=== PATIENT | female | born 1935 | race Caucasian/White ===

== ENCOUNTER → 2023-06-09 14:00 | Outpatient (REF) | payer OTHER, SELFPAY | LOC: RAD 14:00 | PROVIDERS: ATTENDING PHYSICIAN Psychiatry & Neurology Neurology; FAMILY PHYSICIAN Family Medicine | DX: T14.8XXA Other injury of unspecified body region, initial encounter (principal) | CPT/HCPCS: 76705 ==

== ENCOUNTER 2023-06-10 11:39 | Emergency (ER) | payer OTHER, SELFPAY ==
[2023-06-10 11:44] VITALS: BP 94/63
--- NOTE | 2023-06-10 13:59 | ED.GENMED ---
History of Present Illness
General
Chief Complaint: Back Pain
Source: patient and family (Daughter with whom she lives)
Exam Limitations: none
Time Seen by Provider: 06/10/23 12:13
Nursing documentation reviewed up to this point in time: agreed with
Travel History
Have you had any contact with someone who has COVID-19?: No
Do you have any symptoms of coronavirus? Fever > 100 degrees, chills, cough, shortness of breath, sore throat, loss of taste or smell, muscle aches, or headache?: No
History of Present Illness
History of Present Illness:
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 Skinner for back pain. She denies fever or chills. Daughter states they noticed swelling in the area 3 days ago.
The area is slowly improving but pt has been afraid to move around too much wondering what is the issue.
She called Dr. Skinner's office and was told perhaps Lidocaine patch would help
Past History
Past History
ED Past Medical History: Asthma, HTN, Hypercholesterolemia, NIDDM, Psychiatric (Anxiety, panic attacks) and Other (DVT/PE, AAA)
ED Past Surgical History: Gynecological (Tubal ligation, Cyst removed), Orthopedic (right wrist surgery 5 weeks ago.) and Other (Eye surgery)
Patient has exhibited threatening behavior?: No
PSI?: No
Social History
Tobacco: Non-smoker
Alcohol: Occasional
Drug: None
Personal:
Living: with family
Employment: Retired
Family History
Family History: Other
Review of Systems
Review of Systems
Allergies reviewed?: Yes
All Other Systems: ROS reviewed and negative except as documented in HPI and ROS
Constitutional: Denies fever or chills
Respiratory: Denies trouble breathing
Cardiac: Denies chest pain
ABD/GI: Denies abdominal pain
: Denies dysuria, incontinence, difficulty voiding or urgency
Musculoskeletal: Reports back pain; Denies edema
Skin: Reports no symptoms
Neurological: Reports no symptoms
Phy Exam
Physical Exam
Physical Exam:
GENERAL: No acute distress. A&Ox3.
CONSTITUTIONAL: Afebrile.
RESPIRATORY: Regular respirations, nonlabored, lungs clear.
CARDIOVASCULAR: Regular rate and rhythm, no murmurs, no rubs.
GI: Soft, nontender, normal BS
MUSCULOSKELETAL: Moves with ease relative to age. Tender mild swelling left para lumbar ST. Palpation of this area immediately reproduces pain. No redness, warmth or ecchymosis. No spinal bony tenderness. OOB standing no pain with torso rotation,
mild pain with forward flexion. Ambulates at baseline, slow, stead. Well perfused.
SKIN: Warm, dry, pink
PSYCH: Normal mood and affect. Well kept, interactive and appropriate
NEUROLOGIC: Awake, alert and oriented. No focal neurological deficits
Course
Vital Signs
Initial and Last Documented VS:
Initial Vital Signs
Temp BP
97.6 F 94/63
06/10/23 11:44 06/10/23 11:44
Last Documented Vital Signs
Temp Pulse Resp BP Pulse Ox
97.6 F 90 16 94/63 97
06/10/23 11:44 06/10/23 12:01 06/10/23 12:01 06/10/23 11:44 06/10/23 12:01
MDM/Problems Addressed
Differential Diagnosis Includes:
hematoma, abscess
MDM/Problems Addressed:
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 Skinner for back pain. She denies fever or chills. Daughter states they noticed swelling in the area 3 days ago.
The area is slowly improving but pt has been afraid to move around too much wondering what is the issue.
She called Dr. Skinner's office and was told perhaps Lidocaine patch would help
Afebrile, NAD
Patient had outpatient ultrasound, radiology report read: IMPRESSION: Mildly complex collection within the soft tissues at the level of interest as above, measuring up to 7.6 cm in diameter. Sonographic appearance is nonspecific and both abscess and
hematoma are differential considerations.
Afebrile, leg strength 5/5, no cauda equina, moving relatively easily, therapeutic INR, do not suspect spinal pathology
This is most likely a hematoma, it is improving per patient and daughter. Plan: Observe, warm compress, seek medical care immediately for signs of infection or worsening symptoms Or if it is not much improved within the next week
*Critical Care Note
Total Time (30-74mins, 75-104mins- exclusive of procedures): Not Applicable
ED Attending Note
-
Portions of this chart may have been created with voice recognition software.� Occasional wrong word or��sound alike� substitutions may have occurred due to the inherent limitations of voice recognition software.
Discharge Plan
Departure
Patient Disposition: Home (Routine Discharge)
Date of Disposition: 06/10/23
Time of Disposition: 12:41
Patient with high blood pressure during this ER visit?: No
Condition: Good
Discharge Problem:
Hematoma of back
Instructions: Hematoma
Prescriptions:
No Action
venlafaxine [Effexor XR] 37.5 MG capsule,extended release 24hr
37.5 mg PO QPM
acetaminophen [Tylenol Extra Strength] 500 MG tablet
500 mg PO Q4HPRN PRN (Reason: mild pain)
docusate sodium 100 MG capsule
100 mg PO BIDPRN PRN (Reason: constipation)
PreserVision AREDS-2 1 EACH capsule
1 ea PO DAILY
pantoprazole 40 MG tablet,delayed release (DR/EC)
40 mg PO BID
cyanocobalamin (vitamin B-12) 1,000 MCG tablet
2,000 mcg PO Q48H
atorvastatin 80 mg tablet
80 mg PO DAILY
venlafaxine 75 mg capsule,extended release 24hr
75 mg PO DAILY
alprazolam [Xanax] 0.5 mg Tablet
0.5 mg PO DAILYPRN PRN (Reason: anxiety)
warfarin 5 mg Tablet
5 mg PO DAILY@1600
lorazepam 2 mg tablet
2 mg PO QPM
amoxicillin 500 mg Capsule
500 mg PO Q8H 4 Days Qty: 12 0RF
cefdinir 300 mg Capsule
300 mg PO DAILY 4 Days Qty: 4 0RF
Referrals:
Srinivas Bryson DO [Family Provider] - Follow up in 2-3 days
Activity Restrictions/Additional Instructions:
As we discussed, since the area is slowing improving, this is most likely a hematoma as mentioned in your ultrasound.
Activity as tolerated, Warm compress may help
Seek medical care immediately for increasing pain, redness, swelling, fever or feeling worse in any way.
Interventions
Interventions:
*Risk Screen - Suicide Last Done: 06/10/23 11:58
*General Assessment Last Done: 06/10/23 11:58
*Neglect/Abuse Screening Last Done: 06/10/23 11:58
*ED COVID-19 Vaccine History Last Done: 06/10/23 11:44
*Nursing Disposition Last Done: 06/10/23 12:58
ED-Musculoskeletal Assessment Last Done: 06/10/23 11:58
Discharge Date and Time
Discharge Date/Time: 06/10/23 12:58
== END 2023-06-10 12:58 | disposition home or self-care (01) ==
LOC: EMR 11:39
PROVIDERS: EMERGENCY PHYSICIAN Emergency Medicine; FAMILY PHYSICIAN Family Medicine
DX: S30.0XXA Contusion of lower back and pelvis, initial encounter (principal); X58.XXXA Exposure to other specified factors, initial encounter; I48.91 Unspecified atrial fibrillation; I11.0 Hypertensive heart disease with heart failure; I50.9 Heart failure, unspecified; E78.00 Pure hypercholesterolemia, unspecified; E11.9 Type 2 diabetes mellitus without complications; F41.9 Anxiety disorder, unspecified; J45.909 Unspecified asthma, uncomplicated; Z79.01 Long term (current) use of anticoagulants; Z86.711 Personal history of pulmonary embolism; Z86.718 Personal history of other venous thrombosis and embolism; Z86.79 Personal history of other diseases of the circulatory system; Z98.51 Tubal ligation status
CPT/HCPCS: 99282

== ENCOUNTER 2023-11-13 13:14 | Emergency (ER) | payer OTHER, SELFPAY ==
[2023-11-13 13:26] VITALS: BP 100/72
[2023-11-13 13:46] LABS: % Basophils 0.2 % (0-2); % Eosinophils 0.2 % (0-6); % Immature Granulocytes 0.9 % (0-0.5); % Lymphocytes 6.2 % (20.5-51.1); % Monocytes 18.5 % (1.7-9.3); Absolute Immature Granulocytes 0.1 10^3/uL (0-0.05); Absolute Lymphocytes 0.9 10^3/uL (1.2-3.4); Absolute Monocytes 2.8 10^3/uL (0.1-0.6); Absolute Neutrophils 11.2 10^3/uL (1.4-6.5); Hematocrit 27.9 % (37.0-47.0); Hemoglobin 9.4 g/dL (12.0-16.0); Mean Corp Hgb Conc. 33.7 g/dL (33.0-37.0); Mean Corpuscular Hgb 31.5 pg (27.0-31.0); Mean Corpuscular Volume 93.6 fL (81.0-99.0); Nucleated Red Blood Cells % 0.7 %; Platelet Count 198 10^3/uL (130-400); Red Blood Cell Count 2.98 10^6/uL (4.20-5.40); Red Cell Dist. Width 14.2 % (11.5-14.5); White Blood Cell Count 15.2 10^3/uL (4.8-10.8)
[2023-11-13 13:55] LABS: PT 52.1 Sec (11.4-14.6)
[2023-11-13 14:02] LABS: INR 5.75
[2023-11-13 14:38] LABS: ALT (SGPT) 19 U/L (0-35); AST (SGOT) 35 U/L (14-36); Albumin 3.6 g/dl (3.5-5.0); Alkaline Phosphatase 133 U/L (38-126); Blood Urea Nitrogen 31 mg/dl (7-17); Calcium 8.1 mg/dl (8.4-10.2); Carbon Dioxide 22 mmol/L (22-30); Chloride 101 mmol/L (98-107); Glucose 96 mg/dl (70-99); Potassium 4.1 mmol/L (3.5-5.1); Sodium 131 mmol/L (135-145); Total Bilirubin 0.5 mg/dl (0.2-1.3); Total Protein 7.2 g/dl (6.3-8.2); eGFR 33.73
--- NOTE | 2023-11-13 15:28 | ED.GENMED ---
History of Present Illness
General
Chief Complaint: Abnormal Lab Value
Source: patient and family
Exam Limitations: none
Time Seen by Provider: 11/13/23 15:10
Nursing documentation reviewed up to this point in time: agreed with
History of Present Illness
History of Present Illness:
88 female referred by outpt physicians for elevated INR
she has dvt
sees dr caraballo/cristina
has been on antibiotic for uti
chronically weak, no fevers
no bleeding in stool/urine
Past History
Past History
ED Past Medical History: Asthma, HTN, Hypercholesterolemia, NIDDM, Psychiatric (Anxiety, panic attacks) and Other (DVT/PE, AAA)
ED Past Surgical History: Gynecological (Tubal ligation, Cyst removed), Orthopedic (right wrist surgery 5 weeks ago.) and Other (Eye surgery)
Patient has exhibited threatening behavior?: No
PSI?: No
Social History
Tobacco: Non-smoker
Alcohol: Occasional
Drug: None
Personal:
Living: with family
Employment: Retired
Family History
Family History: Other
Review of Systems
Review of Systems
All Other Systems: Not applicable
Constitutional: Reports fatigue
EENT: Reports no symptoms
Respiratory: Reports no symptoms
Cardiac: Reports no symptoms
ABD/GI: Denies bloody stools
: Denies bleeding
Neurological: Reports weakness
Phy Exam
General Physical Exam
General Presentation: well appearing
General age: appears stated age
General Mental: alert
Cardiovascular Exam
Cardiovascular Exam: regular rate/rhythm
Pulmonary Exam
Pulmonary Exam: no respiratory distress
Neurological Exam
Neurological Exam: alert and oriented x3
[place] Coma Scale
Eye Opening: Spontaneous
Verbal Response: Oriented
Motor Response: Obeys Commands
GCS Total Score: 15
Skin Exam
Skin Exam: normal color and warm/dry
Psychiatric Exam
Psychiatric Exam: normal mood/affect
Course
Orders/Labs/Results
Orders:
Orders
11/13/23 13:32
CMP [Comprehensive Metabolic Panel] Urgent
Complete Blood Count/With Diff Urgent
PT/INR [Prothrombin Time] Urgent
Abnormal Lab Results
11/13/23
13:32
WBC 15.2 H 10^3/uL
(4.8-10.8)
RBC 2.98 L 10^6/uL
(4.20-5.40)
Hgb 9.4 L g/dL
(12.0-16.0)
Hct 27.9 L %
(37.0-47.0)
MCH 31.5 H pg
(27.0-31.0)
MPV 11.0 H fL
(7.4-10.4)
Abs Immat Gran (auto) 0.1 H 10^3/uL
(0-0.05)
Absolute Neuts (auto) 11.2 H 10^3/uL
(1.4-6.5)
Absolute Lymphs (auto) 0.9 L 10^3/uL
(1.2-3.4)
Absolute Monos (auto) 2.8 H 10^3/uL
(0.1-0.6)
Immature Gran % 0.9 H %
(0-0.5)
Lymphocytes % 6.2 L %
(20.5-51.1)
Monocytes % 18.5 H %
(1.7-9.3)
PT 52.1 H Sec
(11.4-14.6)
INR 5.75 H*
Sodium 131 L mmol/L
(135-145)
BUN 31 H mg/dl
(7-17)
Creatinine 1.5 H mg/dL
(0.6-1.0)
Calcium 8.1 L mg/dl
(8.4-10.2)
Alkaline Phosphatase 133 H U/L
(38-126)
11/13/23 13:32
11/13/23 13:32
Vital Signs
Initial and Last Documented VS:
Initial Vital Signs
Temp Pulse Resp BP Pulse Ox
100.1 F 80 18 100/72 95
11/13/23 13:26 11/13/23 13:26 11/13/23 13:26 11/13/23 13:26 11/13/23 13:26
Last Documented Vital Signs
Temp Pulse Resp BP Pulse Ox
100.1 F 80 18 100/72 95
11/13/23 13:26 11/13/23 13:26 11/13/23 13:26 11/13/23 13:26 11/13/23 13:26
MDM/Problems Addressed
Differential Diagnosis Includes:
diet/antibiotics/med dose error
no bleeding
hh stable
MDM/Problems Addressed:
elevated inr
Chronic conditions affecting care:
clots
Acute Exacerbation and/or Progression of Chronic Illness:
clots
*Pulse Oximetry
Patient hypoxic: no
*Regional Operations Director Interpretation
Rate: Regional Operations Director- N/A
*Critical Care Note
Total Time (30-74mins, 75-104mins- exclusive of procedures): Not Applicable
Data Reviewed
Review of Other/Old Records Reveals: Labs
Source: patient, records and family
Prescriptions/Medications Considered But Not Given:
vit K
Update Note
Update Note:
vss no s/s bleeding
h/h stable wbc up known uti
Ttext to pcp/heme
my plan of holding dose x 2 days, then resuming after a subsequent test
ED Attending Note
-
Portions of this chart may have been created with voice recognition software.� Occasional wrong word or��sound alike� substitutions may have occurred due to the inherent limitations of voice recognition software.
Discharge Plan
Departure
Patient Disposition: Home (Routine Discharge)
Date of Disposition: 11/13/23
Time of Disposition: 15:51
Patient with high blood pressure during this ER visit?: No
Condition: Good
Discharge Problem:
Abnormal INR
Instructions: Prothrombin time and INR (PT/INR)
Prescriptions:
No Action
venlafaxine [Effexor XR] 37.5 MG capsule,extended release 24hr
37.5 mg PO QPM
acetaminophen [Tylenol Extra Strength] 500 MG tablet
500 mg PO Q4HPRN PRN (Reason: mild pain)
docusate sodium 100 MG capsule
100 mg PO BIDPRN PRN (Reason: constipation)
PreserVision AREDS-2 1 EACH capsule
1 ea PO DAILY
pantoprazole 40 MG tablet,delayed release (DR/EC)
40 mg PO BID
cyanocobalamin (vitamin B-12) 1,000 MCG tablet
2,000 mcg PO Q48H
atorvastatin 80 mg tablet
80 mg PO DAILY
venlafaxine 75 mg capsule,extended release 24hr
75 mg PO DAILY
alprazolam [Xanax] 0.5 mg Tablet
0.5 mg PO DAILYPRN PRN (Reason: anxiety)
warfarin 5 mg Tablet
5 mg PO DAILY@1600
lorazepam 2 mg tablet
2 mg PO QPM
amoxicillin 500 mg Capsule
500 mg PO Q8H 4 Days Qty: 12 0RF
cefdinir 300 mg Capsule
300 mg PO DAILY 4 Days Qty: 4 0RF
Referrals:
NONE,* [Active] -
Robert Caraballo DO [Active] - Follow up in 2-3 days
Gilberto Ornelas MD [Active] - Follow up in 2-3 days
Activity Restrictions/Additional Instructions:
No warfarin today or tomorrow
Retest your INR on Monday and call Dr Caraballo with your results
Return to the ER if any signs of abnormal bleeding or any falls/trauma
Interventions
Interventions:
*General Assessment Last Done: 11/13/23 13:26
Discharge Date and Time
Print Language: NIUEAN
[2023-11-13 16:06] VITALS: BP 119/65
== END 2023-11-13 16:15 | disposition home or self-care (01) ==
LOC: EMR 13:14
PROVIDERS: Emergency Medicine; EMERGENCY PHYSICIAN Emergency Medicine; FAMILY PHYSICIAN Family Medicine
DX: R79.89 Other specified abnormal findings of blood chemistry (principal); R53.1 Weakness; R53.83 Other fatigue; I82.409 Acute embolism and thrombosis of unspecified deep veins of unspecified lower extremity; N39.0 Urinary tract infection, site not specified; E78.00 Pure hypercholesterolemia, unspecified; E11.9 Type 2 diabetes mellitus without complications; F41.9 Anxiety disorder, unspecified; J45.909 Unspecified asthma, uncomplicated; F41.0 Panic disorder [episodic paroxysmal anxiety]; I71.40 Abdominal aortic aneurysm, without rupture, unspecified; I48.91 Unspecified atrial fibrillation; I11.0 Hypertensive heart disease with heart failure; I50.9 Heart failure, unspecified; K21.9 Gastro-esophageal reflux disease without esophagitis; M81.0 Age-related osteoporosis without current pathological fracture; Z98.890 Other specified postprocedural states
CPT/HCPCS: 99283; 80053; 85025; 85610

== ENCOUNTER 2023-12-08 16:36 | Emergency (ER) | payer OTHER, SELFPAY ==
[2023-12-08 16:45] VITALS: BP 115/82
[2023-12-08 17:24] LABS: % Basophils 0.4 % (0-2); % Eosinophils 1.1 % (0-6); % Immature Granulocytes 0.2 % (0-0.5); % Lymphocytes 18.1 % (20.5-51.1); % Monocytes 16.2 % (1.7-9.3); Absolute Eosinophils 0.1 10^3/uL (0-0.7); Absolute Monocytes 0.9 10^3/uL (0.1-0.6); Absolute Neutrophils 3.4 10^3/uL (1.4-6.5); Hematocrit 29.1 % (37.0-47.0); Hemoglobin 9.9 g/dL (12.0-16.0); Mean Corpuscular Hgb 31.7 pg (27.0-31.0); Mean Corpuscular Volume 93.3 fL (81.0-99.0); Mean Platelet Volume 10.8 fL (7.4-10.4); Nucleated Red Blood Cells % 0.6 %; Platelet Count 188 10^3/uL (130-400); Red Blood Cell Count 3.12 10^6/uL (4.20-5.40); Red Cell Dist. Width 15.3 % (11.5-14.5); White Blood Cell Count 5.4 10^3/uL (4.8-10.8)
[2023-12-08 17:36] LABS: Lactic Acid 1.4 mmol/L (0.7-2.0)
[2023-12-08 17:42] LABS: ALT (SGPT) 35 U/L (0-35); AST (SGOT) 93 U/L (14-36); Albumin 3.9 g/dl (3.5-5.0); Alkaline Phosphatase 128 U/L (38-126); Blood Urea Nitrogen 25 mg/dl (7-17); Carbon Dioxide 25 mmol/L (22-30); Chloride 104 mmol/L (98-107); Glucose 127 mg/dl (70-99); Lipase 186 U/L (23-300); Potassium 4.3 mmol/L (3.5-5.1); Sodium 141 mmol/L (135-145); Total Bilirubin 0.6 mg/dl (0.2-1.3); Total Protein 7.7 g/dl (6.3-8.2); eGFR 44.08
[2023-12-08 18:35] VITALS: BP 167/82
[2023-12-08] MEDS: MORPHINE SULFATE 4 MG IV (18:35)
[2023-12-08 19:27] VITALS: BP 148/83
[2023-12-08 20:00] VITALS: BP 169/85
--- NOTE | 2023-12-08 20:04 | ED.GENMED ---
History of Present Illness
General
Chief Complaint: Abdominal Pain
Time Seen by Provider: 12/08/23 17:20
History of Present Illness
History of Present Illness:
88-year-old female presents to the emergency department for evaluation of left-sided abdominal pain that is been ongoing for the past several days. She had a lateral laparotomy performed for a ruptured aortic aneurysm in August 2022 and her pain is
noted to be adjacent to the location of the incision. She feels bulging from the area anytime she stands up. Denies any difficulty with bowel movements. No fevers or chills.
Past History
Past History
ED Past Medical History: Asthma, HTN, Hypercholesterolemia, NIDDM, Psychiatric (Anxiety, panic attacks) and Other (DVT/PE, AAA)
ED Past Surgical History: Gynecological (Tubal ligation, Cyst removed), Orthopedic (right wrist surgery 5 weeks ago.) and Other (Eye surgery)
Patient has exhibited threatening behavior?: No
PSI?: No
Social History
Tobacco: Non-smoker
Alcohol: Occasional
Drug: None
Personal:
Living: with family
Employment: Retired
Family History
Family History: Other
Review of Systems
Review of Systems
Allergies reviewed?: Yes
All Other Systems: ROS reviewed and negative except as documented in HPI and ROS
Phy Exam
Physical Exam
Physical Exam:
GEN: Well appearing, NAD, WDWN
HEENT: Oral mucosa moist, no scleral icterus
Cardiac: Regular rate
Lung: No respiratory distress, no tachypnea
Abdomen is soft, reducible large hernia to the left lateral abdominal
MSK: No gross deformity or injuries
Skin: Good color, no pallor or jaundice, no rashes
Neuro: AO x3, moves all extremities freely
Psych: Calm, cooperative
Course
Orders/Labs/Results
Orders:
Orders
12/08/23 16:52
EKG [Electrocardiogram (*1)] Urgent
Reason for Study: Abdominal Pain
EKG- Treatment ONCE
12/08/23 17:15
CBC/With Diff [Complete Blood Count/With Diff] Urgent
CMP [Comprehensive Metabolic Panel] Urgent
Lactate Level [Lactic Acid] Urgent
Lipase Urgent
12/08/23 17:20
CT Chest/abd/pelvis Angio W/wo Urgent
Comment:
Reason For Exam: abd pain 3 mos s/p AAA repair
12/08/23 18:07
Morphine Sulfate 4 mg IV NOW STA
12/08/23 20:04
HYDROmorphone [Dilaudid] 0.5 mg IV NOW STA
Abnormal Lab Results
12/08/23
17:15
RBC 3.12 L 10^6/uL
(4.20-5.40)
Hgb 9.9 L g/dL
(12.0-16.0)
Hct 29.1 L %
(37.0-47.0)
MCH 31.7 H pg
(27.0-31.0)
RDW 15.3 H %
(11.5-14.5)
MPV 10.8 H fL
(7.4-10.4)
Absolute Lymphs (auto) 1.0 L 10^3/uL
(1.2-3.4)
Absolute Monos (auto) 0.9 H 10^3/uL
(0.1-0.6)
Lymphocytes % 18.1 L %
(20.5-51.1)
Monocytes % 16.2 H %
(1.7-9.3)
BUN 25 H mg/dl
(7-17)
Creatinine 1.2 H mg/dL
(0.6-1.0)
Glucose 127 H mg/dl
(70-99)
AST 93 H U/L
(14-36)
Alkaline Phosphatase 128 H U/L
(38-126)
12/08/23 17:15
12/08/23 17:15
Vital Signs
Initial and Last Documented VS:
Initial Vital Signs
Temp Pulse Resp BP Pulse Ox
98.1 F 80 18 115/82 98
12/08/23 16:45 12/08/23 16:45 12/08/23 16:45 12/08/23 16:45 12/08/23 16:45
Last Documented Vital Signs
Temp Pulse Resp BP Pulse Ox
98.1 F 65 10 187/81 99
12/08/23 16:45 12/08/23 20:40 12/08/23 20:40 12/08/23 20:40 12/08/23 20:40
MDM/Problems Addressed
MDM/Problems Addressed:
Angiogram was obtained to assess the patency of her graft, this fortunately shows no vascular abnormalities. Confirms suspected diagnosis of large lateral abdominal wall hernia. She will be referred to general surgery as an outpatient for further
evaluation and surgical considerations, no emergent findings today
*Critical Care Note
Total Time (30-74mins, 75-104mins- exclusive of procedures): Not Applicable
ED Attending Note
-
Portions of this chart may have been created with voice recognition software.� Occasional wrong word or��sound alike� substitutions may have occurred due to the inherent limitations of voice recognition software.
Discharge Plan
Departure
Patient Disposition: Home (Routine Discharge)
Date of Disposition: 12/08/23
Time of Disposition: 20:04
Patient with high blood pressure during this ER visit?: No
Discharge Problem:
Abdominal hernia
Instructions: Abdominal Hernia
Prescriptions:
New
hydromorphone [Dilaudid] 4 mg tablet
4 mg PO Q6H PRN (Reason: Pain) Qty: 10 0RF
No Action
venlafaxine [Effexor XR] 37.5 MG capsule,extended release 24hr
37.5 mg PO QPM
acetaminophen [Tylenol Extra Strength] 500 MG tablet
500 mg PO Q4HPRN PRN (Reason: mild pain)
docusate sodium 100 MG capsule
100 mg PO BIDPRN PRN (Reason: constipation)
PreserVision AREDS-2 1 EACH capsule
1 ea PO DAILY
pantoprazole 40 MG tablet,delayed release (DR/EC)
40 mg PO BID
cyanocobalamin (vitamin B-12) 1,000 MCG tablet
2,000 mcg PO Q48H
atorvastatin 80 mg tablet
80 mg PO DAILY
venlafaxine 75 mg capsule,extended release 24hr
75 mg PO DAILY
alprazolam [Xanax] 0.5 mg Tablet
0.5 mg PO DAILYPRN PRN (Reason: anxiety)
warfarin 5 mg Tablet
5 mg PO DAILY@1600
lorazepam 2 mg tablet
2 mg PO QPM
amoxicillin 500 mg Capsule
500 mg PO Q8H 4 Days Qty: 12 0RF
cefdinir 300 mg Capsule
300 mg PO DAILY 4 Days Qty: 4 0RF
Referrals:
Bryan Pérez MD [Active] -
Gilberto Ornelas MD [Family Provider] -
Activity Restrictions/Additional Instructions:
Follow-up with general surgery to discuss whether you may be a candidate for any surgery to fix this abdominal hernia
Be sure to use stool softeners with increased dose of pain medicine
Interventions
Interventions:
*Risk Screen - Suicide Last Done: 12/08/23 18:42
*General Assessment Last Done: 12/08/23 18:42
*Neglect/Abuse Screening Last Done: 12/08/23 18:42
ED- Fall Risk Assessment Last Done: 12/08/23 17:57
*ED COVID-19 Vaccine History Last Done: 12/08/23 18:42
*Nursing Disposition Last Done: 12/08/23 21:03
[facility] Assessment Last Done: 12/08/23 17:57
Discharge Date and Time
Discharge Date/Time: 12/08/23 21:03
Print Language: [place]
[2023-12-08] MEDS: DILAUDID 0.5 MG IV (20:38)
[2023-12-08 20:40] VITALS: BP 187/81
== END 2023-12-08 21:03 | disposition home or self-care (01) ==
LOC: EMR 16:36
PROVIDERS: Emergency Medicine; EMERGENCY PHYSICIAN Emergency Medicine; FAMILY PHYSICIAN Family Medicine
DX: K43.9 Ventral hernia without obstruction or gangrene (principal); E11.9 Type 2 diabetes mellitus without complications; E78.00 Pure hypercholesterolemia, unspecified; F41.9 Anxiety disorder, unspecified; I10 Essential (primary) hypertension; J45.909 Unspecified asthma, uncomplicated; F41.0 Panic disorder [episodic paroxysmal anxiety]; Z98.890 Other specified postprocedural states; Z86.718 Personal history of other venous thrombosis and embolism; Z86.79 Personal history of other diseases of the circulatory system; Z86.711 Personal history of pulmonary embolism; Z88.8 Allergy status to other drugs, medicaments and biological substances; Z79.01 Long term (current) use of anticoagulants
CPT/HCPCS: 99285; 96374; 96375; 71275; 74174; 80053; 83605; 83690; 85025; 93005; Q9967

== ENCOUNTER 2024-05-27 21:51 | Emergency (ER) | payer OTHER, SELFPAY ==
[2024-05-27 21:53] VITALS: BP 180/97
[2024-05-27 22:20] LABS: Hematocrit 33.4 % (37.0-47.0); Mean Corp Hgb Conc. 32.9 g/dL (33.0-37.0); Mean Corpuscular Hgb 32.9 pg (27.0-31.0); Mean Platelet Volume 10.8 fL (7.4-10.4); Platelet Count 191 10^3/uL (130-400); Red Blood Cell Count 3.34 10^6/uL (4.20-5.40); Red Cell Dist. Width 15.2 % (11.5-14.5); White Blood Cell Count 8.3 10^3/uL (4.8-10.8)
[2024-05-27 22:28] LABS: ALT (SGPT) 36 U/L (0-35); AST (SGOT) 62 U/L (14-36); Albumin 4.4 g/dl (3.5-5.0); Alkaline Phosphatase 168 U/L (38-126); Blood Urea Nitrogen 25 mg/dl (7-17); Calcium 9.2 mg/dl (8.4-10.2); Carbon Dioxide 28 mmol/L (22-30); Chloride 103 mmol/L (98-107); Glucose 120 mg/dl (70-99); Sodium 139 mmol/L (135-145); Total Bilirubin 0.8 mg/dl (0.2-1.3); Total Protein 8.5 g/dl (6.3-8.2); eGFR 48.94
[2024-05-27 22:42] LABS: Troponin I < 0.012 ng/ml
[2024-05-27 22:44] LABS: % Basophils 0.4 % (0-2); % Eosinophils 1.3 % (0-6); % Immature Granulocytes 0.4 % (0-0.5); % Lymphocytes 13.8 % (20.5-51.1); % Monocytes 13.8 % (1.7-9.3); % Neutrophils 70.3 % (42.2-75.2); Absolute Eosinophils 0.1 10^3/uL (0-0.7); Absolute Lymphocytes 1.1 10^3/uL (1.2-3.4); Absolute Monocytes 1.1 10^3/uL (0.1-0.6); Absolute Neutrophils 5.8 10^3/uL (1.4-6.5); Nucleated Red Blood Cells % 0.5 %
[2024-05-28 00:43] VITALS: BP 167/86
[2024-05-28 00:44] VITALS: BP 167/86
[2024-05-28 01:00] VITALS: BP 142/86
[2024-05-28 02:00] VITALS: BP 140/80
--- NOTE | 2024-05-28 02:59 | ED.GENMED ---
History of Present Illness
General
Chief Complaint: Chest Pain
Source: patient and family
Exam Limitations: none
Time Seen by Provider: 05/28/24 00:54
Nursing documentation reviewed up to this point in time: agreed with
History of Present Illness
History of Present Illness:
The patient is a pleasant 88-year-old female who reports that over the last 4 days, she has had difficulty swallowing both liquids and solids. Patient reports that when she tries to drink or eat anything, she feels as though it takes longer for it
to pass down. Patient reports that she frequently belches after drinking 'and water comes up'. Patient admits this is making her feel extremely anxious. She denies any vomiting. She denies any history of swallowing difficulties.
Past History
Past History
ED Past Medical History: Asthma, HTN, Hypercholesterolemia, NIDDM, Psychiatric (Anxiety, panic attacks) and Other (DVT/PE, AAA)
ED Past Surgical History: Gynecological (Tubal ligation, Cyst removed), Orthopedic (right wrist surgery 5 weeks ago.) and Other (Eye surgery)
Patient has exhibited threatening behavior?: No
PSI?: No
Social History
Tobacco: Non-smoker
Alcohol: Occasional
Drug: None
Personal:
Living: with family
Employment: Retired
Family History
Family History: Other
Review of Systems
Review of Systems
Allergies reviewed?: Yes
All Other Systems: ROS reviewed and negative except as documented in HPI and ROS
Constitutional: Reports no symptoms
EENT: Reports other
Respiratory: Reports no symptoms
Cardiac: Reports chest pain (Patient states that after drinking liquids, she feels a pressure sensation in her chest)
ABD/GI: Reports no symptoms
: Reports no symptoms
Musculoskeletal: Reports no symptoms
Skin: Reports no symptoms
Neurological: Reports no symptoms
Endocrine: Reports no symptoms
Hematologic/Lymphatic: Reports no symptoms
Psychiatric: Reports no symptoms
Phy Exam
Physical Exam
Physical Exam:
Physical Exam
General: No acute distress but patient appears anxious
Neck: supple. no meningeal signs. normal psoterior pharynx. No swelling of soft tissue neck.
Heart: s1/s2 regular rate and rhythm
Lungs: no acute respiratory distress. clear bilaterally
Abdomen: Soft, nontender
Neuro: alert and oriented. no focal neurological deficits
Skin: no rash
Psychiatric: well kept. interactive and cooperative
Extremities: no edema. no calf tenderness. negative homans. good distal pulses
Scores
Heart Score for Chest Pain Patients
STEMI patient?: Not applicable
Course
Orders/Labs/Results
Orders:
Orders
05/27/24 21:57
Electrocardiogram (*1) Urgent
Reason for Study: Other
Other Reason for Exam: epigastric pain
EKG- Treatment ONCE
05/27/24 22:09
Complete Blood Count/With Diff Urgent
Comprehensive Metabolic Panel Urgent
Troponin I Urgent
Abnormal Lab Results
05/27/24
22:09
RBC 3.34 L 10^6/uL
(4.20-5.40)
Hgb 11.0 L g/dL
(12.0-16.0)
Hct 33.4 L %
(37.0-47.0)
MCV 100.0 H fL
(81.0-99.0)
MCH 32.9 H pg
(27.0-31.0)
MCHC 32.9 L g/dL
(33.0-37.0)
RDW 15.2 H %
(11.5-14.5)
MPV 10.8 H fL
(7.4-10.4)
Absolute Lymphs (auto) 1.1 L 10^3/uL
(1.2-3.4)
Absolute Monos (auto) 1.1 H 10^3/uL
(0.1-0.6)
Lymphocytes % 13.8 L %
(20.5-51.1)
Monocytes % 13.8 H %
(1.7-9.3)
BUN 25 H mg/dl
(7-17)
Creatinine 1.1 H mg/dL
(0.6-1.0)
Glucose 120 H mg/dl
(70-99)
AST 62 H U/L
(14-36)
ALT 36 H U/L
(0-35)
Alkaline Phosphatase 168 H U/L
(38-126)
Total Protein 8.5 H g/dl
(6.3-8.2)
05/27/24 22:09
05/27/24 22:09
Vital Signs
Initial and Last Documented VS:
Initial Vital Signs
Temp Pulse Resp BP Pulse Ox
98.5 F 101 18 180/97 97
05/27/24 21:53 05/27/24 21:53 05/27/24 21:53 05/27/24 21:53 05/27/24 21:53
Last Documented Vital Signs
Temp Pulse Resp BP Pulse Ox
98.5 F 77 12 140/80 96
05/27/24 21:53 05/28/24 02:00 05/28/24 02:00 05/28/24 02:00 05/28/24 02:00
MDM/Problems Addressed
Differential Diagnosis Includes:
Dysphagia due to mechanical issue, dysphagia due to functional issue, acute coronary syndrome
MDM/Problems Addressed:
Patient presents with acute pain and difficulty swallowing
*Pulse Oximetry
Patient hypoxic: no
*EKG
Interpreted by ED Provider?: Yes
Interpretation: abnormal
Comparison EKG: changes noted
Rate: normal
Rhythm: sinus and PVC's
[place]: left axis deviation
Interval: normal interval
QRS Pattern: normal QRS
Ischemia: non-specific ST changes
*Reducing System Operator Interpretation
Rate: normal
Interpretation: normal
Rhythm: sinus and PVC's
*Critical Care Note
Total Time (30-74mins, 75-104mins- exclusive of procedures): Not Applicable
Data Reviewed
Review of Other/Old Records Reveals: Labs
Source: patient and family
Patient Management
Social determinants of health affecting care: Living situation and Strong social support
Escalation/DeEscalation of care consider admission/obs:
It is doubtful patient has acute coronary syndrome because her troponin is normal and she has no specific chest pain at this time. I gave patient a drink of water and it reproduced her complaints of pressure in her throat and upper chest with
drinking it. However, she was able to keep the water down. I left a message with Dr. Rhoades as well as the GI front office clerk so patient can have a follow-up appointment.
Although patient's initial EKG showed bigeminy, she was watched on the shade matcher for several hours and she did have occasional PVCs, however, the bigeminy resolved soon after her arrival to the ED
ED Attending Note
-
Portions of this chart may have been created with voice recognition software.� Occasional wrong word or��sound alike� substitutions may have occurred due to the inherent limitations of voice recognition software.
Discharge Plan
Departure
Patient Disposition: Home (Routine Discharge)
Date of Disposition: 05/28/24
Time of Disposition: 02:14
Patient with high blood pressure during this ER visit?: Yes
Condition: Good
Covid-19: Not Applicable
Discharge Problem:
Dysphagia, PVCs (premature ventricular contractions)
Instructions: Ventricular premature beats, Dysphagia in adults - Discharge instructions, Soft diet, Chest Pain DCA Follow Up, BLOOD PRESSURE
Prescriptions:
No Action
venlafaxine [Effexor XR] 37.5 MG capsule,extended release 24hr
37.5 mg PO QPM
acetaminophen [Tylenol Extra Strength] 500 MG tablet
500 mg PO Q4HPRN PRN (Reason: mild pain)
docusate sodium 100 MG capsule
100 mg PO BIDPRN PRN (Reason: constipation)
PreserVision AREDS-2 1 EACH capsule
1 ea PO DAILY
pantoprazole 40 MG tablet,delayed release (DR/EC)
40 mg PO BID
cyanocobalamin (vitamin B-12) 1,000 MCG tablet
2,000 mcg PO Q48H
atorvastatin 80 mg tablet
80 mg PO DAILY
venlafaxine 75 mg capsule,extended release 24hr
75 mg PO DAILY
alprazolam [Xanax] 0.5 mg Tablet
0.5 mg PO DAILYPRN PRN (Reason: anxiety)
warfarin 5 mg Tablet
5 mg PO DAILY@1600
lorazepam 2 mg tablet
2 mg PO QPM
amoxicillin 500 mg Capsule
500 mg PO Q8H 4 Days Qty: 12 0RF
cefdinir 300 mg Capsule
300 mg PO DAILY 4 Days Qty: 4 0RF
hydromorphone [Dilaudid] 4 mg tablet
4 mg PO Q6H PRN (Reason: Pain) Qty: 10 0RF
Referrals:
Joy Rhoades MD [Active] -
Gilberto Ornelas MD [Family Provider] -
Activity Restrictions/Additional Instructions:
You should hear from the electric relay tester office within 48 hours. If you do not hear from the electric relay tester office by this Monday, please give them a call and let them know that you are in the emergency department for your symptoms.
Interventions
Interventions:
*Risk Screen - Suicide Last Done: 05/27/24 21:53
*General Assessment Last Done: 05/27/24 21:53
*Neglect/Abuse Screening Last Done: 05/27/24 21:53
ED- Cardiac Assessment Last Done: 05/28/24 01:04
Discharge Date and Time
Print Language: GUYANESE
== END 2024-05-28 02:41 | disposition home or self-care (01) ==
LOC: EMR 21:51
PROVIDERS: Emergency Medicine; EMERGENCY PHYSICIAN Emergency Medicine; FAMILY PHYSICIAN Family Medicine
DX: I49.3 Ventricular premature depolarization (principal); R13.10 Dysphagia, unspecified; I10 Essential (primary) hypertension
CPT/HCPCS: 99284; 80053; 84484; 85025; 93005

== ENCOUNTER → 2024-06-12 11:51 | Outpatient (REF) | payer OTHER, SELFPAY | LOC: RAD 11:51 | PROVIDERS: ATTENDING PHYSICIAN Surgery Vascular Surgery; FAMILY PHYSICIAN Family Medicine; REFERRING PHYSICIAN Physician Assistant | DX: I71.30 Abdominal aortic aneurysm, ruptured, unspecified (principal); I72.8 Aneurysm of other specified arteries; M89.8X1 Other specified disorders of bone, shoulder; I71.019 Dissection of thoracic aorta, unspecified | CPT/HCPCS: 70498; Q9967 ==

== ENCOUNTER → 2024-06-24 09:20 | Outpatient (REF) | payer OTHER, SELFPAY | LOC: RAD 09:20 | PROVIDERS: ATTENDING PHYSICIAN Internal Medicine Gastroenterology; FAMILY PHYSICIAN Family Medicine | DX: R13.19 Other dysphagia (principal) | CPT/HCPCS: 74221 ==

== ENCOUNTER → 2024-07-25 13:47 | Outpatient (REF) | payer OTHER, SELFPAY | LOC: RCS 13:47 | PROVIDERS: ATTENDING PHYSICIAN Internal Medicine Cardiovascular Disease; FAMILY PHYSICIAN Family Medicine | DX: I48.0 Paroxysmal atrial fibrillation (principal); I50.32 Chronic diastolic (congestive) heart failure | CPT/HCPCS: 93306 ==

== ENCOUNTER 2024-08-15 07:45 | Outpatient (RCR) | payer OTHER, SELFPAY ==
[2024-08-15 07:58] VITALS: BP 142/80
[2024-08-15] MEDS: SODIUM BICARBONATE 1150 MEQ IV (08:07)
[2024-08-15 10:38] VITALS: BP 143/85
[2024-08-15 13:53] VITALS: BP 110/58
== END 2024-09-14 23:59 | disposition home or self-care (01) ==
LOC: OID 07:45
PROVIDERS: ATTENDING PHYSICIAN Surgery Vascular Surgery; FAMILY PHYSICIAN Family Medicine
DX: I71.019 Dissection of thoracic aorta, unspecified (principal); I72.8 Aneurysm of other specified arteries; I72.3 Aneurysm of iliac artery
CPT/HCPCS: 96365; 96366

== ENCOUNTER → 2024-08-15 08:53 | Outpatient (REF) | payer OTHER, SELFPAY | LOC: RAD 08:53 | PROVIDERS: ATTENDING PHYSICIAN Surgery Vascular Surgery; FAMILY PHYSICIAN Family Medicine | DX: I71.40 Abdominal aortic aneurysm, without rupture, unspecified (principal) | CPT/HCPCS: 71275; 74174; Q9967 ==

== ENCOUNTER 2025-03-16 20:45 | Emergency (ER) | payer OTHER, SELFPAY ==
[2025-03-16 20:48] VITALS: BP 147/99
[2025-03-16 21:07] LABS: Hematocrit 34.5 % (37.0-47.0); Hemoglobin 11.2 g/dL (12.0-16.0); Mean Corp Hgb Conc. 32.5 g/dL (33.0-37.0); Mean Corpuscular Volume 98.9 fL (81.0-99.0); Nucleated Red Blood Cells % 0.9 %; Platelet Count 196 10^3/uL (130-400); Red Cell Dist. Width 16.2 % (11.5-14.5)
[2025-03-16 21:32] LABS: ALT (SGPT) 30 U/L (0-35); AST (SGOT) 47 U/L (14-36); Albumin 3.9 g/dl (3.5-5.0); Alkaline Phosphatase 194 U/L (38-126); Blood Urea Nitrogen 30 mg/dl (7-17); Calcium 8.4 mg/dl (8.4-10.2); Carbon Dioxide 25 mmol/L (22-30); Chloride 107 mmol/L (98-107); Glucose 132 mg/dl (70-99); Lipase 176 U/L (23-300); Potassium 5.0 mmol/L (3.5-5.1); Sodium 138 mmol/L (135-145); Total Protein 8.5 g/dl (6.3-8.2); eGFR 43.81
[2025-03-16 21:33] LABS: Troponin I 0.020 ng/ml
[2025-03-17 00:08] VITALS: BP 182/87
--- NOTE | 2025-03-17 00:28 | ED.GENMED ---
Addendum entered and electronically signed by Meg Rondon DO 03/17/25 05:39:
Update:
04:00
CT abdomen pelvis shows no acute findings.
Troponin remains flat.
Patient follows with pain management, Dr. Skinner regarding chronic abdominal pain, primarily left-sided at chronic abdominal wall hernia site. CT is reassuring, no evidence of bowel obstruction nor inflammatory findings.
Stable post repair of abdominal aortic aneurysm/dissection.
Recommend continuing with current pain medication and pain management regimens along with prompt follow-up with pain management for further evaluation.
Original Note:
History of Present Illness
General
Chief Complaint: Abdominal Symptoms
Time Seen by Provider: 03/17/25 00:03
Nursing documentation reviewed up to this point in time: agreed with
History of Present Illness
History of Present Illness:
89-year-old female presents to the ER for treatment of severe abdominal pain. Patient has an extensive history of both abdominal and back pain. She is on chronic Dilaudid, 4 mg several times a day. She states that she takes this for her back
pain. She has a history of aortic aneurysm with rupture and subsequent endovascular repair. She states that after this procedure she was left with a large abdominal wall hernia which she has been told is not repairable. She states that she gets
severe upper abdominal discomfort occasionally which has been attributed to this hernia. She states she has been having several soft bowel movements today. She is on a heavy bowel regimen and has been having what she would perceived to be normal
bowel movements. She denies any urinary discomforts. No fevers or chills. No vomiting. No change in her back pain.
Past History
Past History
ED Past Medical History: Asthma, HTN, Hypercholesterolemia, NIDDM, Psychiatric (Anxiety, panic attacks) and Other (DVT/PE, AAA)
ED Past Surgical History: Gynecological (Tubal ligation, Cyst removed), Orthopedic (right wrist surgery 5 weeks ago.) and Other (Eye surgery)
Patient has exhibited threatening behavior?: No
PSI?: No
Social History
Tobacco: Non-smoker
Alcohol: Occasional
Drug: None
Personal:
Living: with family
Employment: Retired
Family History
Family History: Other
Phy Exam
Physical Exam
Physical Exam:
Patient is awake, alert, appears in no acute distress, head is NCAT, PERRL, EOMI mucous membranes moist, conjunctiva pink, heart regular rate and rhythm without murmurs or ectopy, lungs are clear to auscultation without wheezes rales or rhonchi, no
JVD, abdomen is soft and nontender on palpation, large hernia palpable in left upper quadrant which is soft, nontender, normal active bowel sounds heard throughout, pain is not reproducible on abdominal exam, extremities without edema, GCS is 15, 2+
DP pulses present symmetric bilateral feet
Course
Orders/Labs/Results
Orders:
Orders
03/16/25 20:51
Electrocardiogram (*1) Urgent
Reason for Study: Chest Pain
EKG- Treatment ONCE
03/16/25 21:02
Complete Blood Count/With Diff Urgent
Comprehensive Metabolic Panel Urgent
Lipase Urgent
Troponin I Urgent
03/17/25 00:15
CT Angio Abd/Pelvis w/wo IV [CT Abd/pelvis Angio W/wo Iv] Urgent
Comment:
Reason For Exam: abdominal pain, h/o AAA s/p repair with severe patria
HYDROmorphone [Dilaudid] 1 mg IV NOW STA
03/17/25 00:28
0.9% Sodium Chloride 500 ml [Nss] 500 ml IV BOLUS
03/17/25 01:50
0.9% Sodium Chloride 500 ml [Nss] 500 ml IV BOLUS
03/17/25 01:53
Troponin I Urgent
Abnormal Lab Results
03/16/25
21:02
RBC 3.49 L 10^6/uL
(4.20-5.40)
Hgb 11.2 L g/dL
(12.0-16.0)
Hct 34.5 L %
(37.0-47.0)
MCH 32.1 H pg
(27.0-31.0)
MCHC 32.5 L g/dL
(33.0-37.0)
RDW 16.2 H %
(11.5-14.5)
MPV 10.7 H fL
(7.4-10.4)
Abs Immat Gran (auto) 0.1 H 10^3/uL
(0-0.05)
Absolute Monos (auto) 1.3 H 10^3/uL
(0.1-0.6)
Immature Gran % 0.7 H %
(0-0.5)
Lymphocytes % 20.3 L %
(20.5-51.1)
Monocytes % 14.7 H %
(1.7-9.3)
BUN 30 H mg/dl
(7-17)
Creatinine 1.2 H mg/dL
(0.6-1.0)
Glucose 132 H mg/dl
(70-99)
AST 47 H U/L
(14-36)
Alkaline Phosphatase 194 H U/L
(38-126)
Total Protein 8.5 H g/dl
(6.3-8.2)
03/16/25 21:02
03/16/25 21:02
CBC very reassuring, hemoglobin stable compared to prior from 05/27/2024. Kidney function preserved. Mild elevation in alk phos, similar to prior labs. Initial troponin 0.02, will repeat
Vital Signs
Initial and Last Documented VS:
Initial Vital Signs
Temp Pulse Resp BP Pulse Ox
97.7 F 87 16 147/99 98
03/16/25 20:48 03/16/25 20:48 03/16/25 20:48 03/16/25 20:48 03/16/25 20:48
Last Documented Vital Signs
Temp Pulse Resp BP Pulse Ox
97.7 F 82 27 137/90 98
03/16/25 20:48 03/17/25 01:34 03/17/25 01:34 03/17/25 01:34 03/17/25 01:34
MDM/Problems Addressed
Differential Diagnosis Includes:
Differential diagnosis to consider but not limited to aortic dissection, worsened abdominal aortic aneurysm, bowel obstruction, biliary colic, constipation along with other etiologies considered
Chronic conditions affecting care:
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
*Pulse Oximetry
SaO2: 98
Oxygen Mode of Delivery: Room air
Patient hypoxic: no
*EKG
Interpreted by ED Provider?: Yes (I independently viewed and interpreted twelve-lead EKG showing sinus rhythm with PVCs, rate 95, leftward axis, no ST elevation, nonspecific EKG without evidence for acute ischemia, no significant change compared to
prior from 05/27/2024 other than patient was in [facility])
*End Touching Machine Operator Interpretation
Rate: normal (I independently viewed and interpreted rhythm strip showing normal sinus rhythm with PVCs)
*Critical Care Note
Total Time (30-74mins, 75-104mins- exclusive of procedures): Not Applicable
Data Reviewed
Review of Other/Old Records Reveals: Progress Notes (I reviewed outpatient office note from physician registered sales assistant Kar, [facility] vascular surgery. Patient was seen for routine follow-up and referred for outpatient CT angio. Date of
office visit was 06/04/2024. I reviewed medication list at this time along with history)
Update Note
Update Note:
Given patient complaining of severe pain along with history of opiate dependence, will start with 1 mg of Dilaudid. Patient is also requesting to take her usual Ativan-she will take her home meds. IV fluids ordered given she has only 1 kidney.
She has had multiple CT angios in the past. Given her known persistent aneurysm, will obtain CT angio for further evaluation of her severe pain.
0155: Patient resting comfortably. Vital signs stable. Patient to CT. Awaiting repeated troponin and CT results for disposition. Full patient care transferred to Dr. Rondon for disposition at end of my shift
ED Attending Note
-
Portions of this chart may have been created with voice recognition software.� Occasional wrong word or��sound alike� substitutions may have occurred due to the inherent limitations of voice recognition software.
Discharge Plan
Departure
Prescriptions:
No Action
acetaminophen [Tylenol Extra Strength] 500 MG tablet
500 mg PO Q4HPRN PRN (Reason: mild pain)
docusate sodium 100 MG capsule
100 mg PO BIDPRN PRN (Reason: constipation)
PreserVision AREDS-2 1 EACH capsule
1 ea PO DAILY
pantoprazole 40 MG tablet,delayed release (DR/EC)
40 mg PO BID
cyanocobalamin (vitamin B-12) 1,000 MCG tablet
2,000 mcg PO Q48H
atorvastatin 80 mg tablet
80 mg PO DAILY
venlafaxine 75 mg capsule,extended release 24hr
75 mg PO DAILY
alprazolam [Xanax] 0.5 mg Tablet
0.5 mg PO DAILYPRN PRN (Reason: anxiety)
warfarin 5 mg Tablet
5 mg PO DAILY@1600
lorazepam 2 mg tablet
2 mg PO QPM
hydromorphone [Dilaudid] 4 mg tablet
4 mg PO Q6H PRN (Reason: Pain) Qty: 10 0RF
dapagliflozin propanediol [Farxiga] 10 mg Tablet
10 mg
Referrals:
Srinivas Bryson DO [Family Provider, Family Practice]
Interventions
Interventions:
*Risk Screen - Suicide Last Done: 03/16/25 20:48
*General Assessment Last Done: 03/17/25 00:39
*Neglect/Abuse Screening Last Done: 03/16/25 20:48
*ED- Fall Risk Assessment Last Done: 03/17/25 00:39
*ED COVID-19 Vaccine History Last Done: 03/17/25 00:39
*ED Influenza Vaccine History Last Done: 03/17/25 00:39
CW-Nkeubv-Ewadxtueya Assessment Last Done: 03/17/25 00:39
Discharge Date and Time
Print Language: [place]
[2025-03-17] MEDS: NSS 500 IV ×2 (00:33→02:32)
[2025-03-17] MEDS: DILAUDID 1 MG IV (00:34)
[2025-03-17 00:37] VITALS: BMI 23.0
[2025-03-17 01:34] VITALS: BP 137/90
[2025-03-17 02:06] VITALS: BP 158/92
[2025-03-17 03:00] VITALS: BP 163/89
[2025-03-17 03:24] LABS: Troponin I 0.019 ng/ml
[2025-03-17 04:00] VITALS: BP 129/88
--- NOTE | 2025-03-17 04:00 | ED.GENMED ---
History of Present Illness
General
Chief Complaint: Abdominal Symptoms
Time Seen by Provider: 03/17/25 00:03
Past History
Past History
ED Past Medical History: Asthma, HTN, Hypercholesterolemia, NIDDM, Psychiatric (Anxiety, panic attacks) and Other (DVT/PE, AAA)
ED Past Surgical History: Gynecological (Tubal ligation, Cyst removed), Orthopedic (right wrist surgery 5 weeks ago.) and Other (Eye surgery)
Patient has exhibited threatening behavior?: No
PSI?: No
Social History
Tobacco: Non-smoker
Alcohol: Occasional
Drug: None
Personal:
Living: with family
Employment: Retired
Family History
Family History: Other
Course
Orders/Labs/Results
Orders:
Orders
03/16/25 20:51
Electrocardiogram (*1) Urgent
Reason for Study: Chest Pain
EKG- Treatment ONCE
03/16/25 21:02
Complete Blood Count/With Diff Urgent
Comprehensive Metabolic Panel Urgent
Lipase Urgent
Troponin I Urgent
03/17/25 00:15
CT Angio Abd/Pelvis w/wo IV [CT Abd/pelvis Angio W/wo Iv] Urgent
Comment:
Reason For Exam: abdominal pain, h/o AAA s/p repair with severe patria
HYDROmorphone [Dilaudid] 1 mg IV NOW STA
03/17/25 00:28
0.9% Sodium Chloride 500 ml [Nss] 500 ml IV BOLUS
03/17/25 01:50
0.9% Sodium Chloride 500 ml [Nss] 500 ml IV BOLUS
03/17/25 02:32
Troponin I Urgent
Abnormal Lab Results
03/16/25
21:02
RBC 3.49 L 10^6/uL
(4.20-5.40)
Hgb 11.2 L g/dL
(12.0-16.0)
Hct 34.5 L %
(37.0-47.0)
MCH 32.1 H pg
(27.0-31.0)
MCHC 32.5 L g/dL
(33.0-37.0)
RDW 16.2 H %
(11.5-14.5)
MPV 10.7 H fL
(7.4-10.4)
Abs Immat Gran (auto) 0.1 H 10^3/uL
(0-0.05)
Absolute Monos (auto) 1.3 H 10^3/uL
(0.1-0.6)
Immature Gran % 0.7 H %
(0-0.5)
Lymphocytes % 20.3 L %
(20.5-51.1)
Monocytes % 14.7 H %
(1.7-9.3)
BUN 30 H mg/dl
(7-17)
Creatinine 1.2 H mg/dL
(0.6-1.0)
Glucose 132 H mg/dl
(70-99)
AST 47 H U/L
(14-36)
Alkaline Phosphatase 194 H U/L
(38-126)
Total Protein 8.5 H g/dl
(6.3-8.2)
03/16/25 21:02
03/16/25 21:02
Vital Signs
Initial and Last Documented VS:
Initial Vital Signs
Temp Pulse Resp BP Pulse Ox
97.7 F 87 16 147/99 98
03/16/25 20:48 03/16/25 20:48 03/16/25 20:48 03/16/25 20:48 03/16/25 20:48
Last Documented Vital Signs
Temp Pulse Resp BP Pulse Ox
97.7 F 85 24 158/92 96
03/16/25 20:48 03/17/25 02:30 03/17/25 02:30 03/17/25 02:06 03/17/25 02:15
*Radiology
Radiology exam reviewed: radiology read reviewed
*Pulse Oximetry
SaO2: 96
Oxygen Mode of Delivery: Room air
Patient hypoxic: no
*Critical Care Note
Total Time (30-74mins, 75-104mins- exclusive of procedures): Not Applicable
Update Note
Update Note:
04:00
CT abdomen pelvis shows no acute findings.
Troponin remains flat.
Patient follows with pain management, Dr. Skinner regarding chronic abdominal pain, primarily left-sided at chronic abdominal wall hernia site. CT is reassuring, no evidence of bowel obstruction nor inflammatory findings.
Stable post repair of abdominal aortic aneurysm/dissection.
Recommend continuing with current pain medication and pain management regimens along with prompt follow-up with pain management for further evaluation.
ED Attending Note
-
Portions of this chart may have been created with voice recognition software.� Occasional wrong word or��sound alike� substitutions may have occurred due to the inherent limitations of voice recognition software.
Discharge Plan
Departure
Patient Disposition: Home (Routine Discharge)
Date of Disposition: 03/17/25
Time of Disposition: 04:02
Patient with high blood pressure during this ER visit?: No
Condition: Good
Discharge Problem:
Acute exacerbation of chronic abdominal pain
Instructions: Chronic pain
Prescriptions:
No Action
acetaminophen [Tylenol Extra Strength] 500 MG tablet
500 mg PO Q4HPRN PRN (Reason: mild pain)
docusate sodium 100 MG capsule
100 mg PO BIDPRN PRN (Reason: constipation)
PreserVision AREDS-2 1 EACH capsule
1 ea PO DAILY
pantoprazole 40 MG tablet,delayed release (DR/EC)
40 mg PO BID
cyanocobalamin (vitamin B-12) 1,000 MCG tablet
2,000 mcg PO Q48H
atorvastatin 80 mg tablet
80 mg PO DAILY
venlafaxine 75 mg capsule,extended release 24hr
75 mg PO DAILY
alprazolam [Xanax] 0.5 mg Tablet
0.5 mg PO DAILYPRN PRN (Reason: anxiety)
warfarin 5 mg Tablet
5 mg PO DAILY@1600
lorazepam 2 mg tablet
2 mg PO QPM
hydromorphone [Dilaudid] 4 mg tablet
4 mg PO Q6H PRN (Reason: Pain) Qty: 10 0RF
dapagliflozin propanediol [Farxiga] 10 mg Tablet
10 mg
Referrals:
Srinivas Bryson DO [Family Provider, Family Practice]
Silviano Skinner MD [Active, Anesthesiology] - Call in 1-3 days for appt
Interventions
Interventions:
*Risk Screen - Suicide Last Done: 03/16/25 20:48
*General Assessment Last Done: 03/17/25 00:39
*Neglect/Abuse Screening Last Done: 03/16/25 20:48
*ED- Fall Risk Assessment Last Done: 03/17/25 00:39
*ED COVID-19 Vaccine History Last Done: 03/17/25 00:39
*ED Influenza Vaccine History Last Done: 03/17/25 00:39
EF-Jwzrhc-Hwlgqadowa Assessment Last Done: 03/17/25 00:39
Discharge Date and Time
Print Language: [place]
== END 2025-03-17 04:34 | disposition home or self-care (01) ==
LOC: EMR 20:45
PROVIDERS: Emergency Medicine; EMERGENCY PHYSICIAN Emergency Medicine; FAMILY PHYSICIAN Family Medicine
DX: R10.9 Unspecified abdominal pain (principal); M54.9 Dorsalgia, unspecified; J45.909 Unspecified asthma, uncomplicated; I10 Essential (primary) hypertension; E78.00 Pure hypercholesterolemia, unspecified; E11.9 Type 2 diabetes mellitus without complications; F11.20 Opioid dependence, uncomplicated; F41.9 Anxiety disorder, unspecified; I48.0 Paroxysmal atrial fibrillation; Z86.718 Personal history of other venous thrombosis and embolism; Z86.79 Personal history of other diseases of the circulatory system; Z90.81 Acquired absence of spleen; Z98.51 Tubal ligation status
CPT/HCPCS: 99284; 96374; 96361; 74174; 80053; 83690; 84484; 85025; 93005; Q9967